=== PATIENT | female | born 1935 | race Caucasian/White ===

== ENCOUNTER 2019-03-21 20:10 | Inpatient (IN) | payer MEDICARE, OTHER ==
[2019-03-21 20:52] LABS: BASOPHILS % (AUTO) 1 % (0-3); EOSINOPHILS % (AUTO) 2 % (0-9); HEMATOCRIT 39 % (35-47); HEMOGLOBIN 12.9 gm/dl (12.0-15.5); LYMPHOCYTES % (AUTO) 15.7 % (10-50); MEAN CORPUSCULAR HEMOGLOBIN 26.4 pg (27.0-32.0); MEAN CORPUSCULAR HGB CONC 33.2 gm/dl (32.0-36.0); MONOCYTES % (AUTO) 9.4 % (0-12); NEUTROPHILS % (AUTO) 71.7 % (37-80)
[2019-03-21 20:54] LABS: MEAN CORPUSCULAR VOLUME 80 fL (81-99)
[2019-03-21 21:13] LABS: BILIRUBIN,TOTAL 1.7 mg/dl (0.2-1.0); CALCIUM 9.1 mg/dl (8.5-10.1); CARBON DIOXIDE 21.5 mEq/L (21-32); CREATININE 1.35 mg/dl (0.60-1.00); POTASSIUM 3.8 mMol/L (3.5-5.1); THYROID STIMULATING HORMONE 2.237 uIU/ml (0.358-3.740); TOTAL PROTEIN 7.6 gm/dl (6.4-8.2)
[2019-03-21 21:36] LABS: APPEARANCE,URINE Clear; BILIRUBIN,URINE NEGATIVE (NEGATIVE); COLOR,URINE Yellow; GLUCOSE, URINE (UA) NEGATIVE (NEGATIVE); KETONES,URINE NEGATIVE (NEGATIVE); LEUKOCYTE ESTERASE ,URINE TRACE (NEGATIVE); NITRATE,URINE NEGATIVE (NEGATIVE); OCCULT BLOOD,URINE TRACE LYSED (NEG-TRACE); UROBILINOGEN,URINE 0.2 (0.2-1.0 EU)
[2019-03-21 21:40] LABS: AMPHETAMINES NEGATIVE (NEGATIVE); BACTERIA 1+ (< 1+); BARBITUATES NEGATIVE (NEGATIVE); BENZODIAZEPINES NEGATIVE (NEGATIVE); CANNABINOL(THC) NEGATIVE (NEGATIVE); COCAINE(COC) NEGATIVE (NEGATIVE); CRYSTALS NEGATIVE (0-3 AVE/HPF); METHAMPHETAMINES NEGATIVE (NEGATIVE); OPIATES(OPI) NEGATIVE (NEGATIVE); OXYCODONE(OXY) NEGATIVE (NEGATIVE); PROPOXYPHENE(PPX) NEGATIVE (NEGATIVE); RBC,URINE 0-2 (0-3AV/HPF)
[2019-03-21] MEDS ORDERED: CEFTRIAXONE 1 GM PDS 1 GM in SODIUM CHLORIDE 0.9% 50 ML 50 ML IV ONE ×2 (22:53→23:38)
[2019-03-21] MEDS ORDERED: SODIUM CHLORIDE 0.9% FLUSH 10 ML SOL IV PRN (22:58)
[2019-03-21] MEDS ORDERED: SODIUM CHLORIDE 0.9% 50 ML 50 ML IV ONE (23:50)
[2019-03-21] MEDS ORDERED: CEFTRIAXONE 1 GM PDS ONE (23:50)
[2019-03-22] MEDS: ACETAMINOPHEN 500 MG 500 MG TAB PO PRN ×2 (02:50→20:21)
[2019-03-22 07:14] LABS: BASOPHILS % (AUTO) 2 % (0-3); EOSINOPHILS % (AUTO) 2 % (0-9); HEMATOCRIT 39 % (35-47); HEMOGLOBIN 12.9 gm/dl (12.0-15.5); LYMPHOCYTES % (AUTO) 20.5 % (10-50); MEAN CORPUSCULAR HEMOGLOBIN 26.7 pg (27.0-32.0); MEAN CORPUSCULAR HGB CONC 33.3 gm/dl (32.0-36.0); MONOCYTES % (AUTO) 9.1 % (0-12); NEUTROPHILS % (AUTO) 66.3 % (37-80)
[2019-03-22 07:26] LABS: MEAN CORPUSCULAR VOLUME 80 fL (81-99)
[2019-03-22 07:35] LABS: ALBUMIN 3.8 gm/dl (3.4-5.0); BILIRUBIN,TOTAL 1.4 mg/dl (0.2-1.0); CALCIUM 8.8 mg/dl (8.5-10.1); CREATININE 1.3 mg/dl (0.60-1.00); POTASSIUM 4.2 mMol/L (3.5-5.1); TOTAL PROTEIN 7.2 gm/dl (6.4-8.2)
[2019-03-22 07:39] LABS: TROP I 0.435 ng/ml (0.000-0.056)
[2019-03-22] MEDS ORDERED: FUROSEMIDE 20 MG TAB PO SCH (09:00)
[2019-03-22] MEDS: FUROSEMIDE 20mg SOL IV SCH ×2 (09:58→12:38)
[2019-03-22] MEDS: CEFDINIR 300 MG CAP PO SCH ×2 (10:57→20:01)
[2019-03-23 07:29] LABS: BASOPHILS % (AUTO) 2 % (0-3); EOSINOPHILS % (AUTO) 3 % (0-9); HEMATOCRIT 43 % (35-47); HEMOGLOBIN 13.7 gm/dl (12.0-15.5); LYMPHOCYTES % (AUTO) 16.5 % (10-50); MEAN CORPUSCULAR HGB CONC 32.1 gm/dl (32.0-36.0); MONOCYTES % (AUTO) 7.8 % (0-12); NEUTROPHILS % (AUTO) 70.9 % (37-80)
[2019-03-23 07:33] LABS: MEAN CORPUSCULAR VOLUME 81 fL (81-99)
[2019-03-23 07:35] LABS: CALCIUM 8.8 mg/dl (8.5-10.1); CARBON DIOXIDE 26.7 mEq/L (21-32); CREATININE 1.19 mg/dl (0.60-1.00); POTASSIUM 3.9 mMol/L (3.5-5.1); TROP I 0.158 ng/ml (0.000-0.056)
[2019-03-23] MEDS ORDERED: TEMAZEPAM 15MG 15 MG CAP PO PRN (08:58)
[2019-03-23] MEDS: LISINOPRIL 20 MG TAB PO SCH (09:32)
[2019-03-23] MEDS: FUROSEMIDE 40 MG TAB PO SCH (09:32)
[2019-03-23] MEDS: CEFDINIR 300 MG CAP PO SCH ×2 (10:21→20:44)
[2019-03-23 16:40] VITALS: TEMP 97.8
[2019-03-23] MEDS ORDERED: DONEPEZIL 5 MG 5 MG TAB PO SCH (21:00)
[2019-03-24] MEDS: ACETAMINOPHEN 500 MG 500 MG TAB PO PRN ×2 (00:53→06:53)
[2019-03-24 07:25] LABS: BASOPHILS % (AUTO) 2 % (0-3); EOSINOPHILS % (AUTO) 4 % (0-9); HEMATOCRIT 38 % (35-47); HEMOGLOBIN 12.1 gm/dl (12.0-15.5); LYMPHOCYTES % (AUTO) 23.5 % (10-50); MEAN CORPUSCULAR HEMOGLOBIN 26.1 pg (27.0-32.0); MONOCYTES % (AUTO) 9.5 % (0-12); NEUTROPHILS % (AUTO) 60.5 % (37-80)
[2019-03-24 07:31] LABS: MEAN CORPUSCULAR VOLUME 81 fL (81-99)
[2019-03-24 07:32] LABS: CALCIUM 8.6 mg/dl (8.5-10.1); CARBON DIOXIDE 26.5 mEq/L (21-32); CREATININE 1.47 mg/dl (0.60-1.00); POTASSIUM 4.2 mMol/L (3.5-5.1); TROP I 0.172 ng/ml (0.000-0.056)
[2019-03-24 08:41] VITALS: BP 158/67; PULSE 86; RESP 16; O2SAT 94
[2019-03-24] MEDS: LISINOPRIL 20 MG TAB PO SCH (08:45)
[2019-03-24] MEDS: FUROSEMIDE 40 MG TAB PO SCH (08:45)
[2019-03-24] MEDS: CEFDINIR 300 MG CAP PO SCH (08:45)
== END 2019-03-24 10:00 | DRG 945 ==
LOC: ED 20:10 → ACUTE CARE 22:38
PROVIDERS: ADMIT Internal Medicine; ATTEND Internal Medicine
PROC: F02Z3ZZ Grooming/Personal Hygiene Assessment (ICD-10-PCS; principal; 2019-03-22)
PROC: F02Z0ZZ Bathing/Showering Assessment (ICD-10-PCS; 2019-03-22)
DX: R41.0 Disorientation, unspecified (principal); E87.1 Hypo-osmolality and hyponatremia; N39.0 Urinary tract infection, site not specified; F43.20 Adjustment disorder, unspecified; I50.9 Heart failure, unspecified; F03.90 Unspecified dementia, unspecified severity, without behavioral disturbance, psychotic disturbance, mood disturbance, and anxiety; F91.9 Conduct disorder, unspecified
CPT/HCPCS: 36415; 71045; 80048; 80053; 80305; 80307; 81001; 83735; 83880; 84100; 84443; 84484; 85025; 87088; 93005; 93012; 93306; 99223; 99282; J0696; J1940; A9270; A9270-GY